=== PATIENT | female | born 1965 | race Caucasian/White ===

== ENCOUNTER 2018-09-09 20:56 | Emergency (ER) | payer SELFPAY ==
[2018-09-09] MEDS ORDERED: NORMAL SALINE 1000 ML 1,000 ML IV ONE ×2 (21:33→22:25)
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
[2018-09-09] MEDS ORDERED: THIAMINE HCL 100 MG, FOLIC ACID 1 MG in NORMAL SALINE 250 ML IV ONE (21:34)
[2018-09-09] MEDS ORDERED: LORAZEPAM 1 MG TABLET PO ONE (21:38)
[2018-09-09] MEDS ORDERED: THIAMINE HCL INJ 200 MG/2 ML VIAL ONE (21:46)
[2018-09-09 21:53] LABS: ABSOLUTE BASOPHILS # (AUTO) 0.1 10^3/uL (0.0-0.2); ABSOLUTE EOSINOPHILS # (AUTO) 0.1 10^3/uL (0.0-0.6); ABSOLUTE LYMPHOCYTES (AUTO) 1.4 10^3/uL (0.5-4.7); ABSOLUTE MONOCYTES (AUTO) 0.9 10^3/uL (0.1-1.4); ABSOLUTE NEUT (AUTO) 3.7 10^3/uL (1.7-8.2); BASOPHILS % (AUTO) 1.8 % (0-2); EOSINOPHILS % (AUTO) 1.7 % (0-6); HEMATOCRIT 37.9 % (36.0-47.0); HEMOGLOBIN 13.1 g/dL (12.0-15.5); LYMPHOCYTES % (AUTO) 22.3 % (13-45); MEAN CORPUSCULAR HEMOGLOBIN 37.1 pg (27.0-33.4); MEAN CORPUSCULAR HGB CONC 34.5 g/dL (32.0-36.0); MEAN CORPUSCULAR VOLUME 108 fl (80-97); MONOCYTES % (AUTO) 14.2 % (3-13); PLATELET COUNT 109 10^3/uL (150-450); RED BLOOD COUNT 3.53 10^6/uL (3.72-5.28); RED CELL DISTRIBUTION WIDTH 13.8 % (11.5-14.0); TOTAL CELLS COUNTED % (AUTO) 100 %; WHITE BLOOD COUNT 6.2 10^3/uL (4.0-10.5)
[2018-09-09 22:14] LABS: ACETAMINOPHEN < 10 ug/mL (10-30); ALANINE AMINOTRANSFERASE 58 U/L (9-52); ALBUMIN 4.1 g/dL (3.5-5.0); ALKALINE PHOSPHATASE 94 U/L (38-126); ANION GAP 13 (5-19); ASPARTATE AMINO TRANSFERASE 132 U/L (14-36); BILIRUBIN,DIRECT 0.2 mg/dL (0.0-0.4); BILIRUBIN,TOTAL 0.3 mg/dL (0.2-1.3); BLOOD UREA NITROGEN 8 mg/dL (7-20); CALCIUM 9.7 mg/dL (8.4-10.2); CARBON DIOXIDE 27 mmol/L (22-30); CHLORIDE 104 mmol/L (98-107); GLUCOSE 122 mg/dL (75-110); POTASSIUM 3.8 mmol/L (3.6-5.0); SALICYLATE < 1.0 mg/dL (2.0-20.0); SODIUM 143.6 mmol/L (137-145); TOTAL PROTEIN 7.2 g/dL (6.3-8.2)
[2018-09-09 22:24] LABS: ALCOHOL 478 mg/dL (NONE DETECTED)
[2018-09-09] MEDS ORDERED: ZIPRASIDONE MESYLATE INJ/PF 20 MG SDV IM ONE (22:35)
[2018-09-09 22:46] LABS: URINE AMPHETAMINES SCREEN NEGATIVE; URINE BARBITURATES SCREEN NEGATIVE; URINE BENZODIAZEPINES SCREEN NEGATIVE; URINE COCAINE SCREEN NEGATIVE; URINE MARIJUANA (THC) SCREEN NEGATIVE; URINE METHADONE SCREEN NEGATIVE; URINE PHENCYCLIDINE SCREEN NEGATIVE
[2018-09-09 22:49] LABS: APPEARANCE,URINE CLEAR; BILIRUBIN,URINE NEGATIVE (NEGATIVE); COLOR,URINE YELLOW; GLUCOSE, URINE NEGATIVE (NEGATIVE); KETONES,URINE NEGATIVE (NEGATIVE); LEUKOCYTE ESTERASE,URINE NEGATIVE (NEGATIVE); NITRITE,URINE POSITIVE (NEGATIVE); PROTEIN,URINE NEGATIVE (NEGATIVE); URINE SPECIFIC GRAVITY 1.004; UROBILINOGEN,URINE NEGATIVE mg/dL (<2.0)
[2018-09-10 03:32] VITALS: BP 107/74
--- NOTE | 2018-09-10 07:32 | EKG REPORT ---
SEVERITY:- NORMAL ECG - SINUS RHYTHM : Confirmed by: Skyler Mina MD 10-Sep-2018 07:32:36
--- NOTE | 2018-09-10 09:39 | ER Document Report ---
Doctor's Note Notes: 09/10/18 09:38 This 53-year-old female with a history of alcoholism presents for evaluation of alcohol intoxication and a threat that she might want to kill herself because it is the holidays and she feels lonely. Her family brought her to the hospital because she was intoxicated when she has not seen for some time. On reevaluation this morning this patient is currently sober, she says that she likely partied too much last night and celebration of her birthday. She states that she has no desire to harm herself no desire to harm anyone else. Per her son he corroborates that she does not seem to represent a danger to herself and she has not been threatening to harm herself. Following discussion with on-call disc inspector with collateral believe that this patient is likely safe for discharge as she does not care to pursue detox outpatient treatment or inpatient treatment for her alcoholism. 09/10/18 10:09 Following removal of patient's IV her arrived and prior to being able to handle him discharge paperwork they eloped from the emergency department. It had been discussed that the patient was safe for discharge. Discharge - Discharge Clinical Impression: Alcohol abuse, Combative behavior Condition: Stable Disposition: HOME, SELF-CARE
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
== END 2018-09-10 09:53 | disposition home or self-care (01) ==
LOC: ER 20:56
DX: R45.851 Suicidal ideations (principal); F10.229 Alcohol dependence with intoxication, unspecified; Y90.8 Blood alcohol level of 240 mg/100 ml or more; R45.6 Violent behavior; F32.9 Major depressive disorder, single episode, unspecified; R00.0 Tachycardia, unspecified; R58 Hemorrhage, not elsewhere classified; F17.200 Nicotine dependence, unspecified, uncomplicated; R79.89 Other specified abnormal findings of blood chemistry
CPT/HCPCS: 93005; 99285; 96372; 96361; 96365; 36415; 80307 ×4; 85025; 80053; 81001; 93010; J3490; J3486; J3411; J7030; J7050